=== PATIENT | male | born 1960 | race Caucasian/White ===

== ENCOUNTER 2019-09-22 17:55 | Emergency (ER) | payer BC ==
[~2019-09-22] VITALS: Ht 185.4 cm; Wt 111.1 kg
--- OUTSIDE RECORDS SUMMARY | ~2019-09-22 | XMS | Clinical Summary ---
Demographics + + + | Address | [address] | | | [place] [address] | + + + | Home Phone | | + + + | Preferred Language | Unknown | + + + | Marital Status | Unknown | + + + | Advent Affiliation | Unknown | + + + | Race | Unknown | + + + | Ethnic Group | Unknown | + + + Author + + + | Author | [facility] | | | and [place] | + + + | Organization | [facility] | | | and [place] | + + + | Address | Unknown | + + + | Phone | Unavailable | + + + Care Team Providers + +------+ + | Care Offset Label Rewinder Name | Role | Phone | + +------+ + PCP | Unavailable | + +------+ + Allergies Not on File Medications Not on file Active Problems Not on file Social History + +-------+ +--------+------+ | Tobacco Use | Types | Packs/Day | Years | Date | | | | | Used | | + +-------+ +--------+------+ | Never Assessed | | | | | + +-------+ +--------+------+ + + + | Sex Assigned at | Date Recorded | | | | + + + | Not on file | | + + + + + + + | Job Start Date | Occupation | Industry | + + + + | Not on file | Not on file | Not on file | + + + + + + + + | Travel History | Travel Start | Travel End | + + + + + + | No recent travel history available. | + + Last Filed Vital Signs Not on file Plan of Treatment + + + + + | Health Maintenance | Due Date | Last Done | Comments | + + + + + | Vaccine: | | | | | Dtap/Tdap/Td (1 - | 0 | | | | Tdap) | | | | + + + + + | Vaccine: Zoster (1 | | | | | of 2) | 1 | | | + + + + + | Vaccine: Influenza | | | | | (#1) | 9 | | | + + + + + Results Not on filefrom Last 3 Months"
--- OUTSIDE RECORDS SUMMARY | ~2019-09-22 | XMS | Encounter Summary ---
Demographics + + + | Address | [address] | | | [place] [address] | + + + | Home Phone | | + + + | Preferred Language | Unknown | + + + | Marital Status | | + + + | Episcopal Affiliation | BAP | + + + | Race | White | + + + | Ethnic Group | Unknown | + + + Author + + + | Author | [facility] | + + + | Organization | [facility] | + + + | Address | Unknown | + + + | Phone | Unavailable | + + + Care Team Providers + +------+ + | Care Examination Scorer Name | Role | Phone | + +------+ + PCP | Unavailable | + +------+ + Encounter Details +--------+ + + + + | Date | Type | Department | Care Team | Description | +--------+ + + + + | 12/20/ | Results | [facility] | Juli Coughlin MD | | | 2007 | Only | Department | [address] | | | | | | [place] | | | | | | [phone] | | | | | | [phone] | | | | | | | | +--------+ + + + + Social History + +-------+ +--------+------+ | Tobacco [...] recent travel history available. | + + documented as of this encounter Plan of Treatment Not on filedocumented as of this encounter Procedures + +--------+ + + + | Procedure Name | Priori | Date/Time | Associated Diagnosis | Comments | | | ty | | | | + +--------+ + + + | OLIGOCLONAL BANDS, | Routin | 12/20/2007 | | Results for this | | CSF | e | 5:10 PM | | procedure are in the | | | | PST | | results section. | + +--------+ + + + | CSF CELL COUNT TUBE | Routin | 12/20/2007 | | Results for this | | #1 | e | 5:10 PM | | procedure are in the | | | | PST | | results section. | + +--------+ + + + | LYME ABS TOTAL | Routin | 12/20/2007 | | Results for this | | JOANN, CSF | e | 12:00 AM | | procedure are in the | | | | PST | | results section. | + +--------+ + + + | LAB OTHER | Routin | 12/20/2007 | | Results for this | | | e | 12:00 AM | | procedure are in the | | | | PST | | results section. | + +--------+ + + + documented in this encounter Results OLIGOCLONAL BANDS, CSF (12/20/2007 5:10 PM PST) + + + + + + | Component | Value | Ref Range | Performed | Pathologist | | | | | At | Signature | + + + + + + | CSF | SEE NOTEComment: | SEE COMMENT | [facility] | | | OLIGOCLONAL | | | [facility] | | | BANDS | | | -[place] | | | NUMBER | Reference Range: | | | | | | | | | | | | | | | | | | NO BANDSThe patient's | | | | | | CSF contains multiple | | | | | | restriction bandsare | | | | | | also present in the | | | | | | patient's corresponding | | | | | | serumsample. We are | | | | | | unable to define whether | | | | | | these gammagloare of | | | | | | systemic or | | | | | | intracerebral origin.The | | | | | | clinical significance | | | | | | of a numerical band | | | | | | count,determined by | | | | | | isoelectric focusing, | | | | | | has not beendefinitively | | | | | | defined. The data | | | | | | should be interpreted | | | | | | iconjunction with all | | | | | | pertinent clinical and | | | | | | laboratoryfor this | | | | | | patient.Test performed | | | | | | at [facility] | | | | | | [id number] | | | | | | [place] | | | | | | [place] | | | | | | [id number]: Paddy | | | | | | MD JUANY | | | | + + + + + + + + | Specimen | + + | | + + + + + + + | Performing | Address | City/State/Zipcode | Phone Number | | Organization | | | | + + + + + | [facility] | [address] | [place] [address] | [phone] | | [facility] | | | | + + + + + | [facility] | | | | | [facility] | | | | + + + + + CSF CELL COUNT TUBE #1 (12/20/2007 5:10 PM PST) + + + + + + | Component | Value | Ref Range | Performed | Pathologist | | | | | At | Signature | + + + + + + | CSF COLOR | COLORLESS | | [facility] | | | TUBE 1 | | | A MEDICAL | | | | | | CENTER | | + + + + + + | CSF CLARITY | CLEAR | | [facility] | | | TUBE1 | | | A MEDICAL | | | | | | CENTER | | + + + + + + | CSF WBC | 2 | 0 - 5 CELLS/uL | [facility] | | | TUBE1 | | | A [facility]ICAL | | | | | | CENTER | | + + + + + + | CSF RBC 1 | 7 | CELLS/uL | [facility] | | | | | | A [facility] | | | | | | CENTER | | + + + + + + | CSF | TNP | 0 - 6 % | [facility] | | | NEUTROPHIL | | | A MEDICAL | | | % TUBE 1 | | | CENTER | | + + + + + + | CSF | TNP | 55 - 100 % | [facility] | | | MONONUCLEAR | | | A MEDICAL | | | % TUBE 1 | | | CENTER | | + + + + + + | CSF GLUCOSE | 90Comment: @Avg ,90 = | 40 - 70 MG/DL | [facility] | | | TUBE 1 | 90 12/20/07 [address] | | A MEDICAL | | | | | | CENTER | | + + + + + + | CSF TOTAL | 54 | 15 - 60 MG/DL | [facility] | | | PROTEIN | | | A MEDICAL | | | TUBE 1 | | | CENTER | | + + + + + + + + | Specimen | + + | | + + + + + + + | Performing | Address | City/State/Zipcode | Phone Number | | Organization | | | | + + + + + | [facility] | | | | | LABORATORY | | | | + + + + + | [facility] | And | [place] [address] | | | [facility] | Streets | | | + + + + + LYME ABS TOTAL JOANN, CSF (12/20/2007 12:00 AM PST) + + + + + + | Component | Value | Ref Range | Performed | Pathologist | | | | | At | Signature | + + + + + + | LYME AB | Comment: LYME DISEASE | | [facility] | | | JOANN, CSF | DNA, CSF/SF: NOT | | A MEDICAL | | | | DETECTED | | CENTER | | | | | | | | | | | | | | | | Reference | | | | | | | | | | | | | | | | | | NOT DETECTThe | | | | | | detection of Borrelia | | | | | | burgdorferi DNA is based | | | | | | upoDNA amplification of | | | | | | a specific flagellin | | | | | | gene sequencthe | | | | | | polymerase chain | | | | | | reaction (PCR).NOTE: | | | | | | Diagnosis of Lyme | | | | | | disease should not be | | | | | | based onthe result of | | | | | | this PCR assay. Patients | | | | | | should be evaluwith | | | | | | other approved | | | | | | procedures such as JOANN | | | | | | and/or WeBlot. Clinical | | | | | | symptoms based on the | | | | | | CDC criteria remabest | | | | | | criteria for diagnosis | | | | | | of Lyme disease.This | | | | | | test was developed and | | | | | | its performance | | | | | | characteridetermined by | | | | | | [facility] | | | | | | [place]. Itnot | | | | | | been cleared or | | | | | | approved by the U.[place]. | | | | | | Food and | | | | | | DrugAdministration. The | | | | | | FDA has determined that | | | | | | such clearor approval is | | | | | | not necessary. | | | | | | Performance | | | | | | characteristrefer to the | | | | | | analytical performance | | | | | | of the test. | | | | + + + + + + + + | Specimen | + + | | + + + + + + + | Performing | Address | City/State/Zipcode | Phone Number | | Organization | | | | + + + + + | [facility] | | | | | LABORATORY | | | | + + + + + | [facility] | And | [place] [address] | | | [facility] | Streets | | | + + + + + LAB OTHER (12/20/2007 12:00 AM PST) + + + + + + | Component | Value | Ref Range | Performed | Pathologist | | | | | At | Signature | + + + + + + | MISC REF | Comment: IGG SYNTHESIS | | [facility] | | | TEST RESULT | RATE/INDEX, CSF | | DIAG[facility]ICS | | | | SYNTHESIS RATE IGG, CSF: | | [facility] | | | | -1.7 | | | | | | | | | | | | | | | | | | Reference Range: | | | | | | | | | | | | | | | | | | -9.9 TO +3.3 mg/ IGG | | | | | | INDEX, CSF: | | | | | | 0.50 | | | | | | | | | | | | | | | | | | Reference Range: | | | | | | | | | | | | | | | | | | LESS THAN 0.66 | | | | | | ALBUMIN, CSF: | | | | | | 36.7 | | | | | | | | | | | | | | | | | | Reference Range: | | | | | | | | | | | | | | | | | | 8.0-42.0 mg/dL IGG, | | | | | | CSF: | | | | | | 4.7 | | | | | | | | | | | | | | | | | | Reference Range: | | | | | | | | | | | | | | | | | | 0.8-7.7 mg/dL IGG, | | | | | | SERUM: | | | | | | 1160 | | | | | | | | | | | | | | | | | | Reference Range: | | | | | | | | | | | | | | | | | | 694-1618 mg/dL | | | | | | ALBUMIN, SERUM: | | | | | | 4.5 | | | | | | | | | | | | | | | | | | Reference Range: | | | | | | | | | | | | | | | | | | 3.5-4.9 g/dLThe IgG | | | | | | Synthesis rate, CSF and | | | | | | IgG index, CSF are | | | | | | twoformulae for | | | | | | estimating the amount of | | | | | | IgG produced incentral | | | | | | nervous system. Evidence | | | | | | of increased | | | | | | synthesiIgG provides | | | | | | support for the | | | | | | diagnosis of | | | | | | multiplesclerosis. | | | | + + + + + + + + | Specimen | + + | | + + + + + + + | Performing | Address | City/State/Zipcode | Phone Number | | Organization | | | | + + + + + | [facility] | [address] | [place] [address] | [phone] | | [facility] | | | | + + + + + | [facility] | | | | | [facility] | | | | + + + + + documented in this encounter Visit Diagnoses Not on filedocumented in this encounter"
--- OUTSIDE RECORDS SUMMARY | ~2019-09-22 | XMS | Clinical Summary ---
Demographics + + + | Address | [address] | | | [place] [address] | + + + | Home Phone | | + + + | Preferred Language | Unknown | + + + | Marital Status | | + + + | Mandaen Affiliation | BAP | + + + | Race | White | + + + | Ethnic Group | Unknown | + + + Author + + + | Organization | Unknown | + + + | Address | Unknown | + + + | Phone | Unavailable | + + + Care Team Providers + +------+ + | Care Triage Registered Nurse Name | Role | Phone | + +------+ + PCP | Unavailable | + +------+ + Source Comments QUENTIN is fully live on both [facility] Ambulatory and [facility] InPatient.[facility] Allergies Not on File Medications Not on [...] | + + + + + | Influenza (Flu) | | | | | vaccination (#1) | 9 | | | + + + + + | Pneumococcal | Aged Out | | No longer eligible | | vaccination | | | based on patient's | | | | | age to complete this | | | | | topic | + + + + + Results Not on filefrom Last 3 Months"
--- OUTSIDE RECORDS SUMMARY | ~2019-09-22 | XMS | Clinical Summary ---
Demographics + + + | Address | [address] | | | [place] [address] | + + + | Home Phone | | + + + | Preferred Language | Unknown | + + + | Marital Status | Unknown | + + + | Yarsanism Affiliation | Unknown | + + + | Race | Unknown | + + + | Ethnic Group | Unknown | + + + Author + + + | Author | [facility] | | | and [place] | + + + | Organization | [facility] | | | and [place] | + + + | Address | Unknown | + + + | Phone | Unavailable | + + + Care Team Providers + +------+ + | Care Global Program Director Name | Role | Phone | + [...]
--- OUTSIDE RECORDS SUMMARY | ~2019-09-22 | XMS | Clinical Summary ---
Demographics + + + | Address | [address] | | | [place] [address] | + + + | Home Phone | | + + + | Preferred Language | Unknown | + + + | Marital Status | | + + + | Holiness Affiliation | BAP | + + + | Race | White | + + + | Ethnic Group | Unknown | + + + Author + + + | Organization | Unknown | + + + | Address | Unknown | + + + | Phone | Unavailable | + + + Care Team Providers + +------+ + | Care Maintenance Groundskeeper Name | Role | Phone | + +------+ + PCP | Unavailable | + +------+ + Source Comments QUENTIN is fully live on both [facility] Ambulatory and [facility] InPatient.[facility] Allergies Not on File Medications Not on [...]
--- OUTSIDE RECORDS SUMMARY | ~2019-09-22 | XMS | Encounter Summary ---
Demographics + + + | Address | [address] | | | [place] [address] | + + + | Home Phone | | + + + | Preferred Language | Unknown | + + + | Marital Status | | + + + | Roman Catholic Affiliation | BAP | + + + | Race | White | + + + | Ethnic Group | Unknown | + + + Author + + + | Author | [facility] | + + + | Organization | [facility] | + + + | Address | Unknown | + + + | Phone | Unavailable | + + + Care Team Providers + +------+ + | Care Electric Motor Tester Name | Role | Phone | + [...] [place] | | | | | | [address] | | | | | | [phone] | | | | | | | [...] | | | BANDS | | | -[place] | | | NUMBER | Reference Range: [...] | | | | | | at [facility] | | | | | | [id number] | | | | | | [place] | | | | | | [place] | | | | | | [id number]: Paddy | | | | | | MD JUANY | | | | + + + + + + + + | Specimen | + + | | + + + + + + + | Performing | Address | City/State/Zipcode | Phone Number | | Organization | | | | + + + + + | [facility] | [address] | [place] [address] | [phone] | | [facility] | | | | [...] | + + + + + | [facility] | And | [place] [address] | | | [facility] | Streets | | | + + [...] | | | | | | [place]. Itnot | | | | | | [...] | + + + + + | [facility] | And | [place] [address] | | | [facility] | Streets | | | + + [...] | SYNTHESIS RATE IGG, CSF: | | [facility] | | | | -1.7 | | [...] + + + | [facility] | [address] | [place] [address] | [phone] | | [facility] | | | | + + + + + | [facility] | | | | | [facility] | | | | + + + + + documented in this encounter Visit Diagnoses Not on filedocumented in this encounter"
[~2019-09-22 17:55] MED LIST: ACTOS15 MG PO; ASPIR-LOW81 MG PO; CITRUCEL479 GM PO; COZAAR25 MG PO; CYCLOBENZAPRINE10 MG PO; DILAUDID4 MG PO; ESCITALOPRAM OX10 MG PO; FARXIGA10 MG PO; FLOMAX0.4 MG PO; INVOKANA300 MG PO; LAMICTAL100 MG PO; LAMICTAL150 MG PO; LAMOTRIGINE150 MG PO; LISINOPRIL5 MG PO; LOSARTAN POTASS25 MG PO; MOTRIN IB200 MG PO; NORCO 5-325 TA1 EACH PO; PERCOCET 10-321 EACH PO; TRAZODONE HCL100 MG PO; TRAZODONE HCL50 MG PO; XANAX0.5 MG PO; XANAX1 MG PO; ZYPREXA5 MG PO
[2019-09-22] MEDS ORDERED: FLUOXETINE HCL20 MG PO (19:01)
[2019-09-22] MEDS ORDERED: PRAVASTATIN SOD10 MG PO (19:02)
[2019-09-22] MEDS ORDERED: GLIMEPIRIDE2 MG PO (19:02)
[2019-09-22] MEDS ORDERED: TRESIBA FL100 UNIT/1 SUB-Q (19:03)
[2019-09-22] MEDS ORDERED: OZEMPIC1 MG/0.75 SUB-Q (19:03)
== END 2019-09-22 21:55 | disposition home or self-care (01) ==
LOC: ED 17:55
DX: M54.2 Cervicalgia (principal); E11.9 Type 2 diabetes mellitus without complications; F41.9 Anxiety disorder, unspecified; F32.9 Major depressive disorder, single episode, unspecified; Z79.82 Long term (current) use of aspirin; Z79.899 Other long term (current) drug therapy
CPT/HCPCS: 70498; 80048; 99284-25

== ENCOUNTER 2024-09-09 00:23 | Emergency (ER) | payer BC ==
[~2024-09-09] VITALS: Ht 185.4 cm; Wt 94.8 kg
[~2024-09-09 00:23] MED LIST changes: +CEPHALEXIN500 M1 PO; +FLUOXETINE HCL20 MG PO; +GLIMEPIRIDE2 MG PO; +OZEMPIC1 MG/0.75 SUB-Q; +PERCOCET 5-3251 EACH PO; +PHENTERMINE H37.5 M1 PO; +PRAVASTATIN SOD10 MG PO; +PROPRANOLOL HCL20 MG; +PROSCAR5 MG; +TRESIBA FL100 UNIT/1 SUB-Q; +VITAMIN D325 MC2 PO
[2024-09-09 00:43] LABS: BASOPHILS 0.4 % (0-2); EOSINOPHILS 2.6 % (0-6); HEMATOCRIT 39.9 % (35.0-50.0); HEMOGLOBIN 13.7 g/dL (12.0-18.0); LYMPHOCYTES 21.9 % (24-44); MCH 31.6 (27-36); MCHC 34.4 g/dl (30-36); MCV 91.8 fl (81-99); MONOCYTES 9.2 % (0-12); NEUTROPHILS 65.9 % (39-80); PLATELET COUNT 212 K/uL (140-440); RBC 4.35 M/ul (4.3-5.7)
[2024-09-09 01:00] LABS: ALBUMIN 3.1 g/dL (3.4-5.0); ALBUMIN/GLOBULIN RATIO 0.94 (1.1-2.4); ANION GAP 14.8 (7-21); BILIRUBIN, TOTAL 0.3 ng/dL (0.2-1.0); BUN/CREATININE RATIO 15.67 (6.0-28.6); CALCIUM 8.6 mg/dL (8.5-10.1); CREATININE, SERUM 1.34 mg/dL (0.70-1.30); POTASSIUM 3.8 mmol/L (3.5-5.1); PROTEIN, TOTAL 6.4 g/dL (6.4-8.2)
[2024-09-09] MEDS ORDERED: TETRACAINE HCL 0.5% 4 ML BTL OU SCH (01:45)
[2024-09-09] MEDS ORDERED: CIPROFLOXACIN 0.3% 5 ML HOME.PACK OPTH ONE (02:00)
[2024-09-09 02:42] VITALS: BP 126/80
--- NOTE | 2024-09-11 21:35 | EKG ---
[facility] [address] [facility] [address] [place] [address] Signed Normal sinus rhythm Normal ECG When compared with ECG of 02-MAY-2017 05:42, No significant change was found Confirmed by Krystina Izquierdo MD ([id number]) on 09/11/2024 9:34:58 PM Electronically Signed By: KRYSTINA IZQUIERDO DO 09/11/24 2135 PATIENT NAME: LAURA HOLT Electrocardiogram DATE OF : 62 PHYSICIAN: KRYSTINA IZQUIERDO DO REPORT #: [id number] REPORT IS CONFIDENTIAL AND NOT TO BE RELEASED WITHOUT AUTHORIZATION
== END 2024-09-09 02:44 | disposition home or self-care (01) ==
LOC: ED 00:23
PROVIDERS: Internal Medicine
DX: H10.9 Unspecified conjunctivitis (principal); E11.9 Type 2 diabetes mellitus without complications; Z79.82 Long term (current) use of aspirin; Z79.4 Long term (current) use of insulin; Z79.85 Long-term (current) use of injectable non-insulin antidiabetic drugs; Z79.899 Other long term (current) drug therapy
CPT/HCPCS: 36415; 80053; 83735; 84484; 85025; 93005; 93010; 99284

== ENCOUNTER 2024-11-03 17:21 | Emergency (ER) | payer BC ==
[~2024-11-03] VITALS: Ht 185.4 cm; Wt 92.4 kg
[2024-11-03] MEDS ORDERED: OLANZAPINE5 MG PO (18:46)
[2024-11-03] MEDS ORDERED: OZEMPIC2 MG/0.75 (18:47)
[2024-11-03] MEDS ORDERED: TRAZODONE HCL150 MG PO (18:48)
[2024-11-03] MEDS ORDERED: DULCOLAX5 MG PO (18:50)
[2024-11-03] MEDS ORDERED: CYCLOBENZAPRINE10 MG PO (19:19)
[2024-11-03] MEDS ORDERED: IBUPROFEN 600 MG TAB PO ONE (19:30)
[2024-11-03] MEDS ORDERED: CYCLOBENZAPRINE HCL 10 MG HOME.PACK PO ONE (19:30)
[2024-11-03] MEDS ORDERED: ACETAMINOPHEN 500 MG TAB PO ONE (19:30)
[2024-11-03] MEDS ORDERED: methylPREDNISolone 4 MG HOME.PACK PO ONE (19:30)
[2024-11-03 19:40] VITALS: BP 130/88
== END 2024-11-03 19:42 | disposition home or self-care (01) ==
LOC: ED 17:21
DX: M54.50 Low back pain, unspecified (principal); G89.29 Other chronic pain; E11.9 Type 2 diabetes mellitus without complications; Z79.82 Long term (current) use of aspirin; Z79.4 Long term (current) use of insulin; Z79.85 Long-term (current) use of injectable non-insulin antidiabetic drugs; Z79.899 Other long term (current) drug therapy
CPT/HCPCS: 99283; A9270

== ENCOUNTER 2025-07-28 19:33 | Emergency (ER) | payer BC ==
[~2025-07-28] VITALS: Ht 185.4 cm; Wt 90.0 kg
[~2025-07-28 19:33] MED LIST changes: +DULCOLAX5 MG PO; +OLANZAPINE5 MG PO; +OZEMPIC2 MG/0.75; +TRAZODONE HCL150 MG PO; +TRESIBA FL100 UNIT/1; -TRESIBA FL100 UNIT/1 SUB-Q
[2025-07-28] MEDS ORDERED: TADALAFIL5 M1 PO (19:54)
[2025-07-28] MEDS ORDERED: FARXIGA10 MG PO (19:54)
[2025-07-28] MEDS ORDERED: FLUOXETINE HCL20 MG PO (19:54)
[2025-07-28] MEDS ORDERED: LAMOTRIGINE250 MG PO (19:56)
[2025-07-28] MEDS ORDERED: KETOROLAC TROMETHAMINE 30 MG/ML VIAL IV ONE (20:30)
[2025-07-28 20:48] LABS: BASOPHILS 0.3 % (0.2-1.2); EOSINOPHILS 0.4 % (0.8-7.0); LYMPHOCYTES 10.9 % (21.8-53.1); MCH 30.4 PG (25.7-32.2); MCHC 33.9 g/dL (32.3-36.5); MCV 89.7 fL (79.0-92.2); MONOCYTES 7.7 % (5.3-12.2); NEUTROPHILS 80.3 % (34.0-67.9); RBC 4.96 M/uL (4.63-6.08)
[2025-07-28 20:58] LABS: INR 1.12 (0.80-1.30); PROTIME 13.7 Sec (11.2-14.2)
[2025-07-28 21:10] LABS: ALT (SGPT) 33.0 U/L (14-59); AST (SGOT) 20.0 U/L (15-37); GLOMERULAR FILTRATION RATE,EST 29.0 mL/min (>60); PROTEIN, TOTAL 7.0 g/dL (6.4-8.2); UREA NITROGEN 29.0 mg/dL (7-18)
[2025-07-28] MEDS ORDERED: LACTATED RINGER'S 1,000 ML IV ONE (21:45)
[2025-07-28] MEDS ORDERED: INSULIN LISPRO 100 UNIT/ML ML SUB-Q ONE (21:45)
[2025-07-28 22:01] LABS: BLOOD/HGB, URINE NEGATIVE (Negative); KETONE, URINE TRACE (Negative); LEUK ESTERASE, URINE NEGATIVE (negative); NITRITE, URINE NEGATIVE (negative)
[2025-07-28] MEDS ORDERED: HYDROCODON-ACE1 EA10 PO (22:52)
[2025-07-28] MEDS ORDERED: HYDROCODONE BIT/ACETAMINOPHEN 5/325 MG 1 TAB HOME.PACK PO ONE (23:00)
[2025-07-28 23:19] VITALS: BP 130/65
--- NOTE | 2025-07-29 16:02 | EKG ---
[facility] [address] [facility] [place] [address] Signed Normal sinus rhythm Normal ECG When compared with ECG of 09-SEP-2024 00:44, No significant change was found Confirmed by MAAME MUHAMMAD MD ([id number]) on 07/29/2025 4:02:51 PM Electronically Signed By: MAAME MUHAMMAD 07/29/25 1602 PATIENT NAME: LAURA HOLT Electrocardiogram DATE OF : 62 PHYSICIAN: MAAME MUHAMMAD REPORT #: [id number] REPORT IS CONFIDENTIAL AND NOT TO BE RELEASED WITHOUT AUTHORIZATION
== END 2025-07-28 23:19 | disposition home or self-care (01) ==
LOC: ED 19:33
PROVIDERS: Family Medicine
DX: S29.011A Strain of muscle and tendon of front wall of thorax, initial encounter (principal); E11.65 Type 2 diabetes mellitus with hyperglycemia; E11.22 Type 2 diabetes mellitus with diabetic chronic kidney disease; N18.9 Chronic kidney disease, unspecified; Z79.4 Long term (current) use of insulin; Z79.85 Long-term (current) use of injectable non-insulin antidiabetic drugs; Z79.82 Long term (current) use of aspirin; Z79.899 Other long term (current) drug therapy; X58.XXXA Exposure to other specified factors, initial encounter
CPT/HCPCS: 36415; 71045; 80053; 81003; 82010; 82803; 83036; 83735; 83880; 84484; 85025; 85379; 85610; 93005; 93010; 96361; 96374; 99284-25; A9270; J1815; J1885; J7121